=== PATIENT | female | born 1970 | race Caucasian/White ===

== ENCOUNTER 2022-03-24 02:31 | Emergency (ER) | payer BC, OTHER ==
[2022-03-24] MEDS ORDERED: oxyCODONE 5 MG Tab PO ONE (02:37)
== END 2022-03-24 03:14 | disposition home or self-care (01) ==
LOC: MW.ED 02:31
DX: S52.571A Other intraarticular fracture of lower end of right radius, initial encounter for closed fracture (principal); W18.39XA Other fall on same level, initial encounter
CPT/HCPCS: 29125; 73110; 99283; A9270

== ENCOUNTER 2022-06-25 06:41 | Day surgery (SDC) | payer BC ==
[2022-06-25] MEDS ORDERED: Lactated Ringers 1,000 ML IV SCH (07:00)
[2022-06-25] MEDS ORDERED: Propofol 200 MG/20 ML SDV ONE ×2 (07:27→08:11)
[2022-06-25] MEDS ORDERED: fentaNYL 100 MCG/2 ML SDV ONE (07:27)
== END 2022-06-25 08:47 | disposition home or self-care (01) ==
LOC: MW.SDS 06:41
PROVIDERS: ATTEND Surgery
DX: Z12.11 Encounter for screening for malignant neoplasm of colon (principal); K57.30 Diverticulosis of large intestine without perforation or abscess without bleeding; K64.8 Other hemorrhoids; F17.210 Nicotine dependence, cigarettes, uncomplicated; E66.9 Obesity, unspecified; Z68.30 Body mass index [BMI] 30.0-30.9, adult; Z86.010 Personal history of colon polyps; Z80.0 Family history of malignant neoplasm of digestive organs
CPT/HCPCS: 45378; J2704; J3010; J7120